=== PATIENT | female | born 1955 | race Caucasian/White ===

== ENCOUNTER 2019-10-03 14:43 | Outpatient (CLI) | payer OTHER, SELFPAY ==
--- NOTE | ~2019-10-03 | MM_ITS ---
EXAMINATION: MM screening [facility] BI w sanju HISTORY: Screening mammogram TECHNIQUE: Craniocaudal and mediolateral oblique 3-D tomosynthesis images were obtained and synthetic 2-D images were generated. CAD analysis was submitted and interpreted. COMPARISON: 09/05/2018, 08/23/2017, 08/21/2016 BREAST PARENCHYMAL COMPOSITION: There are scattered areas of fibroglandular density. FINDINGS: There is no evidence of suspicious mass, calcification, or architectural distortion to sugg est malignancy in either breast. There has been no suspicious interval change. IMPRESSION: 1. No mammographic evidence of malignancy. 2. Recommend routine screening mammography in one year. BI-RADS Category 1: Negative Reviewed, dictated and finalized at location A.
== END 2019-10-03 14:44 | disposition home or self-care (01) ==
LOC: ANHIMG 14:47
PROVIDERS: PCP Nurse Practitioner Obstetrics & Gynecology; Visit Provider Nurse Practitioner Obstetrics & Gynecology
DX: Z12.31 Encounter for screening mammogram for malignant neoplasm of breast (principal)
CPT/HCPCS: 77063; 77067

== ENCOUNTER → 2020-12-24 11:01 | Outpatient (CLI) | payer MEDICARE, SELFPAY ==
--- NOTE | ~2020-12-24 | DEXA_ITS ---
Bone Density Report Name: Carole Bailey Age: 65 Sex: Female Ethnicity: White Date of : 1955 Indication: osteopenia; height loss; postmenopausal Referring Provider: Marshall Sanchez Study: Bone densitometry was performed. Exam Date: December 24, 2020 Accession number: [id number] Bone Density: Region BMD T-score Z-score Classification AP Spine (L1-L4) 0.768 -2.5 -0.7 Osteoporosis Femoral Neck (Left) 0.676 -1.6 0.0 Osteopenia Total Hip (Left) 0.794 -1.2 0.0 Osteopenia Femoral Neck (Right) 0.620 -2.1 -0.5 Osteopenia Total Hip (Right) 0.746 -1.6 -0.4 Osteopenia Total Hip Mean 0.770 -1.4 -0.2 Osteopenia World Health Organization criteria for BMD impression classify patients as: Normal (T-score at or above -1.0), Osteopenia (T-score between -1.0 and -2.5), or Osteoporosis (T-score at or below -2.5). 10-year Fracture Risk: FRAX not reported because: Some T-score for Spine Total or Hip Total or Femoral Neck at or below -2.5 Previous Exams: Region Exam Age BMD T-score BMD Change BMD Change Date g/cm2 vs Baseline vs Previous AP Spine(L1-L4) 12/24/2020 65 0.768 -2.5 -0.167* -0.027* 09/05/2018 63 0.795 -2.3 -0.140* -0.040* 08/21/2016 61 0.836 -1.9 -0.099* 0.005 08/01/2014 58 0.831 -2.0 -0.104* -0.013 01/06/2012 56 0.844 -1.8 -0.091* -0.091* 07/10/2009 53 0.935 -1.0 Total Hip(Left) 12/24/2020 65 0.794 -1.2 -0.107* -0.006 09/05/2018 63 0.800 -1.2 -0.101* -0.023 08/21/2016 61 0.822 -1.0 -0.078* -0.016 08/01/2014 58 0.838 -0.9 -0.063* -0.006 01/06/2012 56 0.844 -0.8 -0.057* -0.057* 07/10/2009 53 0.900 -0.3 Total Hip(Right) 12/24/2020 65 0.746 -1.6 -0.085* -0.022 09/05/2018 63 0.768 -1.4 -0.063* -0.015 08/21/2016 61 0.783 -1.3 -0.048* -0.017 08/01/2014 58 0.800 -1.2 -0.031* 0.014 01/06/2012 56 0.786 -1.3 -0.045* -0.045* 07/10/2009 53 0.831 -0.9 *Denotes significance at 95% confidence level, LSC for AP Spine = 0.022 g/cm2, LSC for Total Hip = 0.027 g/cm2 Clinical Information Provided by Patient: Has used the following medications: Calcium Patient maximum height was 65.5 Menopause Age: 54 No regular weight bearing exercise Drinks caffeinated beverages Onset of menses at age 13 Number of
--- NOTE | ~2020-12-24 | MM_ITS ---
EXAMINATION: MM screening [facility] [place] BI w sanju HISTORY: Screening mammogram TECHNIQUE: Craniocaudal and mediolateral oblique 3-D tomosynthesis images were obtained and synthetic 2-D images were generated. CAD analysis was submitted and interpreted. COMPARISON: 10/03/2019, 09/05/2018, 08/23/2017 BREAST PARENCHYMAL COMPOSITION: There are scattered areas of fibroglandular density. FINDINGS: There is no evidence of suspicious mass, calcification, or architectural distortion to sugg est malignancy in either breast. There has been no suspicious interval change. IMPRESSION: 1. No mammographic evidence of malignancy. 2. Recommend routine screening mammography in one year. BI-RADS Category 1: Negative Reviewed, dictated and finalized at location A.
== END ==
PROVIDERS: PCP Internal Medicine; Visit Provider Obstetrics & Gynecology
DX: Z12.31 Encounter for screening mammogram for malignant neoplasm of breast (principal); M81.0 Age-related osteoporosis without current pathological fracture; M85.851 Other specified disorders of bone density and structure, right thigh; M85.852 Other specified disorders of bone density and structure, left thigh
CPT/HCPCS: 77063; 77067; 77080

== ENCOUNTER → 2022-02-05 11:13 | Outpatient (CLI) | payer MEDICARE, SELFPAY ==
--- NOTE | ~2022-02-05 | MM_ITS ---
EXAMINATION: MM screening [facility] w sanju HISTORY: Screening TECHNIQUE: Craniocaudal and mediolateral oblique 3-D tomosynthesis images were obtained and synthetic 2-D images were generated. CAD analysis was submitted and interpreted. COMPARISON: No prior mammogram is available for comparison at this institution. BREAST PARENCHYMAL COMPOSITION: There are scattered areas of fibroglandular density. FINDINGS: There is no evidence of suspicious mass, calcification, or architectural distortion to sugg est malignancy in either breast. There has been no suspicious interval change. IMPRESSION: 1. No mammographic evidence of malignancy. 2. Recommend routine screening mammography in one year. BI-RADS Category 1: Negative Reviewed, dictated and finalized at location A. 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
== END ==
PROVIDERS: PCP Internal Medicine; Visit Provider Nurse Practitioner Obstetrics & Gynecology
DX: Z12.31 Encounter for screening mammogram for malignant neoplasm of breast (principal)
CPT/HCPCS: 77063; 77067

== ENCOUNTER 2023-01-19 01:36 | Day surgery (SDC) | payer MEDICARE, SELFPAY ==
[2023-01-06 14:03] VITALS: BMI 25.8
[2023-01-19 07:08] VITALS: BP 142/67; PULSE 78; RESP 16; TEMP 35.8; O2SAT 99; BMI 25.5
[2023-01-19] MEDS: LACTATED RINGERS 1,000 ML 150 ML IV CONT (07:34)
--- NOTE | 2023-01-19 07:56 | P.PNAN_ITS ---
Anes - Initial Pre Proc Eval Procedure: Operation Date: 01/19/23 08:30 Proposed Procedures p Screening Colonoscopy - Gerardo Arroyo MD Date/Time: 01/19/23 07:56 Surgeon: Gerardo Arroyo MD Pre Op Diagnosis: neoplasm screening Patient Data Age: 67 Gender: F Height: 1.65 m Weight: 69.7 kg Last Vital Signs Temp 96.4 F L 01/19/23 07:08 Pulse 78 01/19/23 07:08 Resp 16 01/19/23 07:08 BP 142/67 H 01/19/23 07:08 Pulse Ox 99 01/19/23 07:08 O2 Del Method Room Air 01/19/23 07:08 Allergies Allergy/AdvReac Type Severity Reaction Status Date / Time No Known Drug Allergies Allergy Unknown Unknown Verified 01/19/23 07:14 Home Medications Medication Instructions Recorded Confirmed Type estradiol 4 mcg vaginal insert 4 mcg vaginal 2XW 11/12/20 01/19/23 History (Imvexxy Maintenance Pack) levothyroxine 25 mcg tablet 25 mcg PO DAILY #90 tabs 12/16/22 01/19/23 Rx alendronate 70 mg tablet 70 mg PO WEEKLY 01/06/23 01/19/23 History Patient hx anesthesia problems: none Family hx anesthesia problems: none Results Review: All pre-operative results and documents have been reviewed as part of the pre-operative evaluation. [facility] Past Medical History Medical History Age related osteoporosis Family History Family History Mother , November 2020 Diabetes mellitus Thyroid disorder Heart disease Sibling Thyroid disorder Grandparent Diabetes mellitus Social History Social History (Updated 12/16/22 @ 13:15 by Amber Palmer [facility]) Social History: Caffeine-coffee 2 cups daily Smoking packs per day: 0.5 Smoking cigarettes per day: 10.0 Years smoked: 25 Smoking pack-years: 12.50 Smoking status: Former smoker Tobacco type: cigarettes Smoking end date: 02/20/00 Alcohol intake: current Drinks per week: 2 Alcohol use details: wine and margaritas Substance use: never Substance use type: does not use Lack of Transportation: No Lack of Food: Never True Current Housing: I Have Housing Concerned About Future Housing: No Difficulty Paying Gas/Electric Bills: No Difficulty Paying for Meds: No Currently Unemployed: No Education: High School Diploma/GED Difficulty w/ Childcare or Family Care: No Living arrangements: with family Spiritual care concerns: No Anes - Eval Final PreProcedure Day of Procedure 01/19/23 07:56 Patient weight: normal Heart: regular rate and rhythm Lungs: clear to auscultation Airway: Mallampati scale class II Neurological: alert and oriented Last oral intake: >/= 8 hours ASA classification: II Emergent: no Anesthetic plan: proceed Anesthesia type and monitoring: general GIVS and standard monitoring Results Review: All pre-operative results and documents have been reviewed as part of the pre- operative evaluation. Informed Consent: The patient's anesthetic plan and its attendant risks and benefits were discussed with the patient/family/POA. Questions were solicited and answers provided to the satisfaction of the patient/family/POA.
--- NOTE | 2023-01-19 07:57 | P.HP_ITS ---
History of Present Illness History of Present Illness Consent: Risks, benefits, and alternatives have been discussed and questions answered. Patient agrees to proceed with procedure. Chief complaint: neoplasm screening Narrative: Carole Bailey is a 67 year old female Presents for screening colonoscopy. Patient's current weight appetite and bowel movements are normal. Patient denies abdominal pain. She has had no bleeding. Family history noncontributory . Previous colonoscopy 12 years ago was unremarkable. Review of Systems Review of Systems: Review of systems noncontributory. [facility] Past Medical History Medical History (Reviewed 04/28/21 @ 13:34 by Jossie Chandra [facility]) Age related osteoporosis Family History Family History (Reviewed 12/16/22 @ 13:03 by Amber Palmer [facility]) Mother , November 2020 Diabetes mellitus Thyroid disorder Heart disease Sibling Thyroid disorder Grandparent Diabetes mellitus Social History Social History (Updated 12/16/22 @ 13:15 by Amber Palmer [facility]) Social History: Caffeine-coffee 2 cups daily Smoking packs per day: 0.5 Smoking cigarettes per day: 10.0 Years smoked: 25 Smoking pack-years: 12.50 Smoking status: Former smoker Tobacco type: cigarettes Smoking end date: 02/20/00 Alcohol intake: current Drinks per week: 2 Alcohol use details: wine and margaritas Substance use: never Substance use type: does not use Lack of Transportation: No Lack of Food: Never True Current Housing: I Have Housing Concerned About Future Housing: No Difficulty Paying Gas/Electric Bills: No Difficulty Paying for Meds: No Currently Unemployed: No Education: High School Diploma/GED Difficulty w/ Childcare or Family Care: No Living arrangements: with family Spiritual care concerns: No Meds Home Medications and Allergies Home Medications Medication Instructions Recorded Confirmed Type estradiol 4 mcg vaginal insert 4 mcg vaginal 2XW 11/12/20 01/19/23 History (Imvexxy Maintenance Pack) levothyroxine 25 mcg tablet 25 mcg PO DAILY #90 tabs 12/16/22 01/19/23 Rx alendronate 70 mg tablet 70 mg PO WEEKLY 01/06/23 01/19/23 History Allergies Allergy/AdvReac Type Severity Reaction Status Date / Time No Known Drug Allergies Allergy Unknown Unknown Verified 01/19/23 07:14 Vital Signs Vital Signs - 24 hr 01/19/23 07:08 Temperature 96.4 F L Pulse Rate 78 Respiratory Rate 16 Blood Pressure 142/67 H Pulse Oximetry 99 Oxygen Delivery Room Air Exam Narrative: Physical exam reveals patient to be alert. Vital signs stable. HEENT exam is unremarkable. Patient is anicteric. Lungs are clear to auscultation and percussion. Heart is without murmur or extra sounds. Abdomen bowel sounds are present soft nontender with no organomegaly. Digital external rectal exam is normal. Assessment and Plan Assessment and plan (1) Screening for colon cancer: Code(s): Z12.11 - Encounter for screening for malignant neoplasm of colon Status: Acute Assessment and Plan: Patient presents today for screening colonoscopy. She appears to be at average risk for colon polyps. Further recommendations may be giv
[2023-01-19 08:29] VITALS: BP 96/53; PULSE 73; RESP 16; O2SAT 97
[2023-01-19 08:39] VITALS: BP 105/50; PULSE 74; RESP 20; O2SAT 100
[2023-01-19 08:49] VITALS: BP 104/64; PULSE 68; RESP 16; O2SAT 100
== END 2023-01-19 08:56 | disposition home or self-care (01) ==
PROVIDERS: PCP Internal Medicine; Visit Provider Internal Medicine Gastroenterology
PROC: 0DJD8ZZ Inspection of Lower Intestinal Tract, Via Natural or Artificial Opening Endoscopic (ICD-10-PCS; CPT 45378; principal; 2023-01-19 08:30)
DX: Z12.11 Encounter for screening for malignant neoplasm of colon (principal); K64.8 Other hemorrhoids; M81.0 Age-related osteoporosis without current pathological fracture; Z87.891 Personal history of nicotine dependence
CPT/HCPCS: G0121; J2704; J7120

== ENCOUNTER → 2023-04-16 10:53 | Outpatient (CLI) | payer MEDICARE, SELFPAY ==
--- NOTE | ~2023-04-16 | DEXA_ITS ---
Bone Density Report Name: AGUSTIN TIJERINA Age: 67 Sex: Female Ethnicity: White Date of : 1955 Indication: postmenopausal osteoporosis; monitoring treatment; Referring Provider: Anshul, Lauren Orozco Study: Bone densitometry was performed. Exam Date: April 16, 2023 Accession number: [id number] Bone Density: Region BMD T-score Z-score Classification AP Spine (L1-L4) 0.804 -2.2 -0.3 Osteopenia Femoral Neck (Left) 0.708 -1.3 0.4 Osteopenia Total Hip (Left) 0.822 -1.0 0.4 Normal Femoral Neck (Right) 0.686 -1.5 0.2 Osteopenia Total Hip (Right) 0.804 -1.1 0.2 Osteopenia Total Hip Mean 0.813 -1.1 0.3 Osteopenia World Health Organization criteria for BMD impression classify patients as: Normal (T-score at or above -1.0), Osteopenia (T-score between -1.0 and -2.5), or Osteoporosis (T-score at or below -2.5). 10-year Fracture Risk: FRAX not reported because: Treated for osteoporosis Previous Exams: Region Exam Age BMD T-score BMD Change BMD Change Date g/cm2 vs Baseline vs Previous AP Spine(L1-L4) 04/16/2023 67 0.804 -2.2 -0.131* 0.036* 12/24/2020 65 0.768 -2.5 -0.167* -0.027* 09/05/2018 63 0.795 -2.3 -0.140* -0.040* 08/21/2016 61 0.836 -1.9 -0.099* 0.005 08/01/2014 58 0.831 -2.0 -0.104* -0.013 01/06/2012 56 0.844 -1.8 -0.091* -0.091* 07/10/2009 53 0.935 -1.0 Total Hip(Left) 04/16/2023 67 0.822 -1.0 -0.078* 0.029* 12/24/2020 65 0.794 -1.2 -0.107* -0.006 09/05/2018 63 0.800 -1.2 -0.101* -0.023 08/21/2016 61 0.822 -1.0 -0.078* -0.016 08/01/2014 58 0.838 -0.9 -0.063* -0.006 01/06/2012 56 0.844 -0.8 -0.057* -0.057* 07/10/2009 53 0.900 -0.3 Total Hip(Right) 04/16/2023 67 0.804 -1.1 -0.027 0.058* 12/24/2020 65 0.746 -1.6 -0.085* -0.022 09/05/2018 63 0.768 -1.4 -0.063* -0.015 08/21/2016 61 0.783 -1.3 -0.048* -0.017 08/01/2014 58 0.800 -1.2 -0.031* 0.014 01/06/2012 56 0.786 -1.3 -0.045* -0.045* 07/10/2009 53 0.831 -0.9 *Denotes significance at 95% confidence level, LSC for AP Spine = 0.022 g/cm2, LSC for Total Hip = 0.027 g/cm2 Clinical Information Provided by Patient: Is being treated for osteoporosis Has use
--- NOTE | ~2023-04-16 | MM_ITS ---
EXAMINATION: MM screening [facility] BI w sanju HISTORY: Screening mammogram TECHNIQUE: Craniocaudal and mediolateral oblique 3-D tomosynthesis images were obtained and synthetic 2-D images were generated. CAD analysis was submitted and interpreted. COMPARISON: 02/05/2022, 12/24/2020, 10/03/2019 BREAST PARENCHYMAL COMPOSITION: The breasts are almost entirely fatty. FINDINGS: No suspicious mass, calcification, or architectural distortion are identified in either sid ast to suggest malignancy. There has been no suspicious interval change. IMPRESSION: 1. No mammographic evidence of malignancy. 2. Recommend routine screening mammography in one year. BI-RADS Category 1: Negative Reviewed, dictated and finalized at location A. 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
== END ==
PROVIDERS: PCP Internal Medicine; Visit Provider Nurse Practitioner Obstetrics & Gynecology
DX: Z12.31 Encounter for screening mammogram for malignant neoplasm of breast (principal); M85.89 Other specified disorders of bone density and structure, multiple sites
CPT/HCPCS: 77063; 77067; 77080

== ENCOUNTER 2024-05-16 13:20 | Outpatient (CLI) | payer MEDICARE, SELFPAY ==
--- NOTE | ~2024-05-16 | MM_ITS ---
EXAMINATION: MM screening [facility] BI w sanju HISTORY: Screening mammogram TECHNIQUE: Craniocaudal and mediolateral oblique 3-D tomosynthesis images were obtained and synthetic 2-D images were generated. CAD analysis was submitted and interpreted. COMPARISON: 04/16/2023, 02/05/2022, 12/24/2020 BREAST PARENCHYMAL COMPOSITION:Not Dense. There are scattered areas of fibroglandular density. FINDINGS: No suspicious mass, calcification, or architectural distortion are identified in either sid ast to suggest malignancy. There has been no suspicious interval change. IMPRESSION: No mammographic evidence of malignancy. Recommend routine screening mammography in one year. BI-RADS Category 1: Negative Reviewed, dictated and finalized at location . 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
== END 2024-05-16 13:21 | disposition home or self-care (01) ==
LOC: MICIMG 13:21
PROVIDERS: PCP Internal Medicine; Visit Provider Nurse Practitioner
DX: Z12.31 Encounter for screening mammogram for malignant neoplasm of breast (principal)
CPT/HCPCS: 77063; 77067

== ENCOUNTER 2025-01-17 00:43 | Day surgery (SDC) | payer MEDICARE, SELFPAY ==
[2025-01-09 13:09] VITALS: BMI 25.9
--- NOTE | 2025-01-09 13:16 | PC.NURSE ---
[facility] has started construction of its new state of the art ER which will open Spring 2026. With this, we anticipate parking may be a challenge for some our surgical patients and families. Parking spaces are limited but are available for all Surgical, obstetrics, and ER patients sharing this lot. If you arrive and find you are having a hard time finding a parking space, please note that we understand the challenges, please drive around the hospital and park near Hospital Entrance 1. When you enter this entrance, you can ask a volunteer to direct or take you back to the surgical waiting area to check in. We appreciate everyone?s understanding of these expected challenges while we build for your future. Report to the Outpatient Waiting Room, entrance under the green pavilion located off [address], at time __08:00am on date ___01/17/25____. Planned Procedure Time: __10:00am .? Time changes happen often and if your time is changed the preop area will call you the afternoon before. - You and your visitor will be asked to self-screen and do not enter if you have any COVID symptoms. Please call surgeon if you need to reschedule. - A mask is optional within the hospital at this time. Patients may have clear liquids (water, carbonated beverages, clear teas, apple juice) until 3 hours prior to surgery with a maximum of 20 ounces. - No food from midnight until time of surgery and no smoking, or chewing tobacco (or any form of nicotine). No chewing gum, candy or mints.( 0700am) Take only the following medications with a SIP of water on the morning of surgery: _ Levothyroxine DO NOT STOP ANY OF YOUR OTHER PRESCRIPTION MEDICATIONS PRIOR TO SURGERY EXCEPT THE FOLLOWING Hold all vitamins and supplements for 3 days per anesthesiologist. Medications to discontinue per physician NONE Date to take last dose NONE Please no make-up, nail kinyarwanda, hairspray, perfume, deodorant, or body powder the day of surgery.? No jewelry (including any body piercings) or valuables the day of surgery, leave them at home.? Please take a shower or bath the night before, or the morning of, surgery with an antibacterial soap.? Wear comfortable, loose fitting clothing.? - Jewelry must be removed prior to entering the operating room.? Rings and piercings that are not removed may be cut off. - The hospital will not accept responsibility for valuables.? - Please leave all valuables, including medications, at home the day of surgery. If you are going home after surgery, a licensed delivery route driver must drive you home.? - NO public transportation without another adult if you receive anesthesia. - We recommend that an adult stay with you for 24 hours following discharge. - We also recommend that you do not drive, make important decision, drink alcoholic beverages, or take any drugs that were not prescribed by your health care provider for at least 24 hours after your discharge time. Follow any additional instructions given to you from your surgeon. Telephone instructions given to __Patient and asked if any additional questions and then verbalized understanding. Patient advised to call surgeon office or pre surgery nurse liaison [phone] if any additional questions.
--- OUTSIDE RECORDS SUMMARY | 2025-01-17 00:46 | XMS_ITS | Data Portability ---
Author Organization [facility] Address [address] [place] [address] Care Team Providers Care Rural Service Engineer Name Role Phone CHEVY GOLDMAN Primary Care Provider Assessment Encounter Date Assessment Date Assessment LastModified by Organization Details LastModified Time 11/01/2024 11/01/2024 Annual gynecological exam performed. Patient will come back in a year unless there are new symptoms. [email or web address] Not available 11/01/2024 11:58:28 Plan of Treatment Reminders Order Date Submit Date Provider Last Modified By Organization Details Last Modified Time Details Appointments SURG Hysterosc opy 2024 10:00A Kassidy SANCHEZ MD Not available Not available Not available SURG POST OP 2024 10:45A Kassidy SANCHEZ MD Not available Not available Not available Lab None recorded. Referral None recorded. Procedures None recorded. Surgeries hysterosc opy, surgical, with biopsy of endometri um and/or polypecto my (SURG) 2024 025 [facility], [address], [place], [address], 12/11/2024 18:32:05 Imaging US, pelvis 2024 025 [email or web address] [facility], [place], [address], 11/09/2024 23:26:41 US, transvagi nal 2024 025 [email or web address] [facility], [place], [address], 11/09/2024 23:26:41 MAMMO, screening , digital, bilateral 2024 025 [facility], [address], [place], [address], 11/01/2024 14:09:34 Medication Orders Imvexxy Starter Pack 4 mcg vaginal insert, dose pack 2024 025 [id number], [address], [place], [address], 11/01/2024 14:05:24 Patient TargetsNo targets recorded. Patient InstructionsNo instructions recorded. Reason for Referral None Reported. Results Created Date Observation Date Name Description Value Unit Range Abnormal Flag Note LastModifiedBy Organization Detail LastModifiedTime 11/02/1911/01/2024 IMAGE GUIDE D PAP AND HPV REGAR DLESS image guided Pap, HPV regardless of Pap result SEE RESULT S BELOW CASE REPOR T: Cytol ogy Gynec ologi ariel Repor t Case: [id number] Autho maggie maloney Provi arden: Selma Casarez, MUNDO Colle cted: 11/01 1416 Order ing Locat ion: [place] [facility] Recei juan pablo: 11/02 0542 First Scree n: Irene Araya Specdemetri men: Scretor hadley Pap - Image d, Cervi x STATE MENT OF ADEQU ACY: Satis facto ry for evalu ation Trans forma tion zone compo nent prese nt ----- ----- ----- ----- ----- ----- ----- ----- ----- ----- ----- ----- ----- ----- ----- ----- ----- ---- FINAL DIAGN OSIS: Negat efra for Intra epith alfred tom or Austin dunbar (NIL) . Atrop hy prese nt Elect gilberto herr simona d by Irene Araya on 2024 at 1254 CDT ----- ----- ----- ----- ----- ----- ----- ----- ----- ----- ----- ----- ----- ----- ----- ----- ----- ---- HPV RESUL TS: HPV mRNA E6/E7 : No HPV mRNA Detec luis felipe NOTE: This high risk HPV mRNA assay detec ts fourt een high- risk HPV types (16, 18, 31, 33, 35, 39, 45, 51, 52, 56, 58, 59, 66, 68) witho ut diffe renti ation . COMME NT: This speci men was revie wed by a Cytot echno logis t and/o r Patho logis t (as indic ated in this repor t) after evalu ation using the Thinp rep Imagi ng Syste m. CLINI ARIEL INFOR MATIO N: Menst rual Statu s: LMP (if appli cable ): Clini ariel Histo ry/Pr eviou s Pap: Type of Neopl rocco (if appli cable ): Signi fican t Clini ariel Findi ngs: Other Histo ry: Hormo haroldo (if appli cable ): PAP EDUCA TAISHA L NOTE: The Pap Test is a scree leonie test with an inher ent false negat efra rate. Liqui d-bas ed sampl ing may decre ase, but will not elimi meghan, false negat efra resul ts. A negat efra resul t does not precl ude the prese nce and/o r devel opmen t of disea se, since the prese nce of abnor mal cells in the sampl e depen ds on the locat ion of the lesio n and sampl ing techn ique. Keysha nued regul ar scree leonie is the best metho d of cance r preve ntion . If repor luis felipe cytol ogic findi ng do not corre late with physi ariel and/o r histo rical findi ngs, furth er inves tigat ion is recom robert d, as clini robin torres nted. Not Available [facility] (Lab) [address], [place], [address], 11/08/2024 14:16:49 11/02/19 25 11/01/2024 CULTU RE: HSV/ VZV hsv culture/type Commen t abnormal Posit efra for Herpe s simpl ex virus type- 2. Typin g was confi rmed by monoc lonal antib agustín micro scopi c immun ofluo resce nce. Not Available [facility] (Lab) [address], [place], [address], 11/08/2024 14:16:50 11/02/19 25 11/01/2024 CULTU RE: HSV/ VZV viral culture, rapid,varice lla Commen t Herpe s simpl ex virus was isola luis felipe and confi rmed by fluor escen t antib agustín stain ing. The isola tion of Varic philly- Zoste r virus from this cultu re is not possi ble due to the growt h of Herpe s simpl ex virus . This does not rule out the possi bilit y of Varic philly- Zoste r virus infec tion. Not Available [facility] (Lab) [address], [place], [address], 11/08/2024 14:16:50 04/16/19 24 04/16/2023 MAMMO , scree leonie, bilat eral No observ ation record ed. [email or web address] [facility] [address], [place], [address], 04/22/2023 11:20:08 04/17/19 24 04/16/2023 DEXA, axial skele ton + verte bral fract ure asses sment No observ ation record ed. [email or web address] [facility] [address], [place], [address], 04/22/2023 11:20:08 11/10/19 25 11/09/2024 US, pelvi s No observ ation record ed. [email or web address] [facility] [address], [place], [address], 11/09/2024 17:46:35 11/10/19 25 11/09/2024 US, trans vagin al No observ ation record ed. [email or web address] [facility] [address], [place], [address], 11/09/2024 17:46:45 11/10/19 25 11/09/2024 US, pelvi s No observ ation record ed. [email or web address] [facility] [address], [place], [address], 12/06/2024 15:43:51 Result Notes None recorded. Problems Name Problem SNOMED Code Status Onset Date Resolution Date Notes Provider Name and Address Organization Details Recorded Time Screenin g for malignan t neoplasm of colon Completed 201009/02/2020 Special screening for malignant neoplasms , colon;Pra ctice ID: 0001 [facility] 10:44:24 Screenin g for malignan t neoplasm of cervix Completed 201109/02/2020 Screening for malignant neoplasms of the cervix;Re corded Elsewhere : No Locati on: [facility] So urce: EHR Chron ic: N Practic e ID: 0001 Bill able Time: 08:30:00 AM [facility] 10:44:22 Adult health examinat ion Completed 201109/02/2020 Routine Medical Exam;Shahriar rded Elsewhere : No Locati on: [facility] So urce: EHR Chron ic: N Practic e ID: 0001 Bill able Time: 08:30:00 AM [facility] 10:43:59 [facility] [id number] Completed 201109/02/2020 Dyspareun ia;Record ed Elsewhere : No Locati on: [facility] So urce: EHR Chron ic: N Practic e ID: 0001 Bill able Time: 08:30:00 AM Monique Steel [facility] 10:44:10 Disorder of bone and articula r cartilag e [id number] Completed 201109/02/2020 Disorder of bone and cartilage , unspecifi ed;Record ed Elsewhere : No Locati on: [facility] So urce: EHR Chron ic: N Practic e ID: 0001 Bill able Time: 08:45:00 AM [facility] 10:44:07 Speciali yenny medical examinat ion Completed 201409/02/2020 Gynecolog ical Examinati on;Record ed Elsewhere : No Locati on: [facility] So urce: EHR Chron ic: N Practic e ID: 0001 Bill able Time: 08:45:00 AM Monique Steel [facility] 10:44:32 Screenin g for malignan t neoplasm of rectum Completed 201509/02/2020 Encounter for screening for malignant neoplasm of rectum;Re corded Elsewhere : No Locati on: [facility] So urce: EHR Chron ic: N Practic e ID: 0001 Bill able Time: 09:00:00 AM [facility] 10:44:[address] Concept Completed 201509/02/2020 Encntr for general adult medical exam w/o abnormal findings; Recorded Elsewhere : No Locati on: [facility] So urce: EHR Chron ic: N Practic e ID: 0001 Bill able Time: 09:00:00 AM Monique Steel [facility] 10:44:29 Non-scar ring alopecia [id number] Completed 201509/02/2020 Other specified nonscarri ng hair loss;Shahriar rded Elsewhere : No Locati on: [facility] So urce: EHR Chron ic: N Practic e ID: 0001 Bill able Time: 09:00:00 AM Monique mccracken [facility] 10:44:17 Menopaus e present [id number] Completed 201609/02/2020 Symptoms such as flushing, sleepless ness, headache, lack of concentra tion, associate d with natural (age-rela luis feliep) menopause ;Recorded Elsewhere : No Locati on: [facility] So urce: EHR Chron ic: N Practic e ID: 0001 Bill able Time: 08:30:00 AM [facility] 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 10:44:31 Disorder of bone [id number] Completed 201609/02/2020 Disorder of bone;Shahriar rded Elsewhere : No Locati on: [facility] So urce: EHR Chron ic: N Practic e ID: 0001 Bill able Time: 08:30:00 AM Monique Steel [facility] 10:44:06 Atrophic vaginiti s [id number] Completed 201609/02/2020 Postmenop ausal atrophic vaginitis ;Recorded Elsewhere : No Locati on: [facility] So urce: EHR Chron ic: N Practic e ID: 0001 Bill able Time: 08:30:00 AM [facility] 10:44:01 Deep pain on intercou rse [id number] Completed 201809/02/2020 Deep dyspareun ia;Record ed Elsewhere : No Locati on: [facility] So urce: EHR Chron ic: N Practic e ID: 0001 Bill able Time: 10:30:00 AM Monique Steel [facility] 10:44:04 Disorder of uterus 33629593 Completed 201809/02/2020 Disorder of uterus;Re corded Elsewhere : No Locati on: [facility] So urce: EHR Chron ic: N Practic e ID: 0001 Bill able Time: 10:30:00 AM Monique Steel [facility] 10:44:09 Sexual function painful Completed 201809/02/2020 Dyspareun ia;Record ed Elsewhere : No Locati on: [facility] So urce: EHR Chron ic: N Practic e ID: 0001 Bill able Time: 03:00:00 PM Monique Steel [facility] 10:44:27 Polyp of corpus uteri [id number] Completed 201809/02/2020 Polyp of corpus uteri;Rec orded Elsewhere : No Locati on: [facility] Source: EHR Chron ic: N Practic e ID: 0001 Bill able Time: 12:00:00 AM Monique Steel [facility] 10:44:19 Blood leukocyt e number above referenc e range [id number] Completed 201809/02/2020 Elevated white blood cell count, unspecifi ed;Record ed Elsewhere : No Locati on: [facility] So urce: EHR Chron ic: N Practic e ID: 0001 Bill able Time: 03:00:00 PM Monique Steel [facility] 10:44:13 Bone density finding [id number] Completed 201809/02/2020 osteopeni a;Recorde d Elsewhere : No Locati on: [facility] So urce: EHR Chron ic: N Practic e ID: 0001 Bill able Time: 11:30:00 AM [facility] 10:44:02 Hypothyr oidism [id number] Completed 201809/02/2020 Hypothyro idism, unspecifi ed;Record ed Elsewhere : No Locati on: [facility] So urce: EHR Chron ic: N Practic e ID: 0001 Bill able Time: 11:30:00 AM Monique mccracken [facility] 10:44:12 Problem Notes None recorded. Procedures Surgical History Date Name Laterality Status Provider Name and Address Organization Details Recorded Time 11/02/19 25 Date of Last Pap Smear completed [facility] 12/11/2024 14:17:16 05/16/19 25 Date of Last Mammogram completed Sandhya Dwyer [facility] 11/01/2024 12:01:44 12/25/19 21 Most Recent Bone Density completed Jessy [facility] 09/11/2022 13:29:03 09/13/19 19 completed [facility] 09/02/2020 10:47:25 03/22/19 11 completed [facility] 09/02/2020 10:51:56 03/22/19 11 Colonoscopy completed [facility] 09/02/2020 10:55:46 03/22/18 90 Laparoscopy completed [facility] 09/02/2020 10:55:42 Hysteroscopy completed Kathy Retana [facility] 08/16/2019 11:10:35 Imaging Results None recorded. Procedure Notes None recorded. Medical Equipment None Reported. Allergies No known drug allergies Medications Name Sig Start Date Stop Date Status Note LastModified by Organization Details LastModified Time Prometriu m 200 mg capsule take 1 capsule (200MG) by oral route every day for 30 days in the evening soham herr per 28 day cycle 07/21 completed Prescrib ed Elsewher e: No Locat ion: [facility] odify By: vivien Mathews nter DateTime : 06/23/19 14 08:30:00 AM Not Available Not Available Not Available Evista 60 mg tablet TAKE 1 TABLET DAILY 07/27 completed Prescrib ed Elsewher e: No Locat ion: [facility] odify By: vivien Mathews nter DateTime : 07/21/19 17 08:31:41 AM Not Available Not Available Not Available fluconazo le 150 mg tablet TAKE 1 TABLET BY MOUTH EVERY DAY WITH DINNER FOR 1 DAY 12/02 completed Not Available Not Available Not Available valacyclo vir 1 gram tablet Take 1 tablet every day by oral route for 5 days. 11/20 completed Not Available Not Available Not Available Lotrisone 1 %-0.05 % topical cream apply by topical route 2 times every day for 2 weeks to the affected and surround ing areas of skin in the morning and evening 07/22 completed Prescrib ed Elsewher e: No [facility] By: vivien Mathews nter DateTime : 07/10/19 16 09:00:00 AM Not Available Not Available Not Available alendrona te 70 mg tablet TAKE 1 TABLET WEEKLY (MONDAYS ) active Not Available Not Available No t Available levothyro xine 25 mcg tablet TAKE 1 TABLET DAILY active Not Available Not Available No t Available triamcino lone acetonide 0.1 % topical ointment APPLY A THIN LAYER TO THE AFFECTED AREA(S) BY TOPICAL ROUTE 2 TIMES PER DAY NEEDED active Not Available Not Available No t Available zinc 50 mg tablet active Prescrib ed Elsewher e: Yes Loca tion: [facility] odify By: jerson Lentz ncounter DateTime : 08/11/19 18 09:30:00 AM Not Available Not Available Not Available estradiol 0.01% (0.1 mg/gram) vaginal cream INSERT 1 G TWICE A WEEK BY VAGINAL ROUTE. 09/03 completed Not Available Not Available Not Available Vitamin D2 1,250 mcg (50,000 unit) capsule take 1 capsule by oral route every week 06/08 completed Prescrib ed Elsewher e: No [facility] By: merry egan DateTime : 07/12/19 10:11:37 AM Not Available Not Available Not Available calcium-m agnesium 300 mg-300 mg tablet active Prescrib ed Elsewher e: Yes [facility]oca [facility] By: giovanna Benavides ter DateTime : 08/12/19 03:00:00 PM Not Available Not Available Not Available multivita min capsule take 1 capsule by oral route every day active Prescrib ed Elsewher e: Yes Loca tion: Tony lentz [facility] odify By: anuja sinha DateTime : 06/28/19 08:45:00 AM Not Available Not Available Not Available Premarin 0.625 mg/gram vaginal cream insert 0.5 applicat orful by vaginal route 2-3 x a week 08/11 completed Prescrib ed Elsewher e: No [facility]at [facility] By: giovanna Benavides ter DateTime : 06/11/19 08:02:40 AM Not Available Not Available Not Available levothyro xine 09/02 completed Not Available Not Available Not Available zinc 08/15 completed Not Available Not Available Not Available Calcium/M agnesium Formula 09/02 completed Not Available Not Available Not Available Differin 0.3 % topical gel apply by topical route every day to the affected area(s) after washing in the evening 10/03 completed Prescrib ed Elsewher e: Yes Loca tion: Tony lentz [facility] odify By: tripp sams DateTime : 08/11/19 18 09:30:00 AM Not Available Not Available Not Available Vagifem 10 mcg vaginal tablet INSERT ONE TABLET VAGINALL Y TWICE WEEKLY 06/27 completed Prescrib ed Elsewher e: No Locat ion: Tony lentz [facility] odify By: vivien Mathews nter DateTime : 02/22/20 14 03:45:58 PM Not Available Not Available Not Available sodium,po tassium,m ag sulfates 17.5 gram-3.13 gram-1.6 gram oral soln TAKE DIRECTED active Not Available Not Available No t Available Zyclara 3.75 % topical cream in a pump apply 1 pump by topical route every day as a thin layer to the affected area(s) before bedtime ; rub in until complete ly absorbed , leave in place for 8 hours, and then wash off with mild soap and water 10/03 completed Prescrib ed Elsewher e: Yes Loca tion: [facility] odify By: amshannon Lentz ncounter DateTime : 08/11/19 18 09:30:00 AM Not Available Not Available Not Available Multi Vitamin 09/02 completed Not Available Not Available Not Available Duavee 0.45 mg-20 mg tablet TAKE 1 TABLET BY ORAL ROUTE EVERY DAY 10/03 completed Prescrib ed Elsewher e: No Locat ion: [facility] odify By: tripp Lentz ncounter DateTime : 08/11/19 18 09:30:00 AM Not Available Not Available Not Available Imvexxy Starter Pack 4 mcg vaginal insert, dose pack INSERT (4 MCG) TWICE WEEKLY FOR DURATION OF USE active Not Available Not Available No t Available Imvexxy Maintenan ce Pack 4 mcg vaginal insert Insert 1 vaginal insert twice a week by vaginal route. 09/11 completed Not Available Not Available Not Available Flowflex COVID-19 Antigen Home Test kit DIRECTED 09/11 completed Not Available Not Available Not Available Vitals Date Recorded Body height Body mass index (BMI) Body weight Systolic And Diastolic Provider Name and Address Organization Details Last Updated DateTime 11/01/2024 162.56 cm 26.6 kg/m2 94861.82 g 112/70 mm[Hg] Sandhya Dwyer [facility] 11/01/2024 11:59:09 Date Recorded Body height Body mass index (BMI) Body weight Systolic And Diastolic Provider Name and Address Organization Details Last Updated DateTime 11/17/2023 162.56 cm 27.5 kg/m2 83605.78 g 113/73 mm[Hg] Ximena Galan [facility] 11/17/2023 14:16:33 Date Recorded Systolic And Diastolic Provider Name and Address Organization Details Last Updated DateTime 12/02/2022 122/74 mm[Hg] Lauren Landers, [facility]- [address], [place], [address], [facility] 12/02/2022 09:54:03 Date Recorded Body height Body mass index (BMI) Body weight Provider Name and Address Organization Details Last Updated DateTime 12/02/2022 162.56 cm 26.8 kg/m2 32104.41 g Jessy [facility] 12/02/2022 09:43:48 Date Recorded Body height Body mass index (BMI) Body weight Systolic And Diastolic Provider Name and Address Organization Details Last Updated DateTime 12/11/2024 162.56 cm 26.8 kg/m2 22114.41 g 125/74 mm[Hg] [facility] 12/11/2024 14:16:35 Social History Question Answer Notes LastModified by Organizat ion Details LastModified Time Tobacco Smoking Status Never Smoker Not Available [facility] 01/23/2020 03:28:11 Are You Blind Or Do You Have Difficulty Seeing? No Information n ot available 09/02/2020 What Is Your Level Of Caffeine Consumption? Occasional Information not available 09/02/2020 In The 14 Days Before Symptom Onset, Have You Had Close Contact With A Laboratory-confirm ed COVID-19 While That Case Was Ill? No Information n ot available 09/11/2022 In The 14 Days Before Symptom Onset, Have You Had Close Contact With A Person Who Is Under Investigation For COVID-19 While That Person Was Ill? No Information not available 09/11/2022 Have You Been To An Area Known To Be High Risk For COVID-19? No Information not available 09/11/2022 Are You Deaf Or Do You Have Serious Difficulty Hearing? No Information not available 09/02/2020 What Type Of Diet Are You Following? REGULAR Information n ot available 09/02/2020 Do You Use Your Seat Belt Or Car Seat Routinely? Yes Information not available 09/02/2020 Do You Have Smoke And Carbon Monoxide Detectors In Your Home? Yes Information not available 09/02/2020 Do You Use Sunscreen Routinely? Yes Information not available 09/02/2020 Sex: Unknown Functional Status Question Answer Note LastModified by Organizat ion Details LastModified Time Do you use any illicit or recreational drugs? No Information not available 09/02/2020 What is your level of alcohol consumption? Occasional Information not available 09/02/2020 Are you able to walk independently without assistance or assistive devices? YESWOREST Information not available 09/02/2020 What is your exercise level? Occasional Information not available 09/02/2020 Mental Status Question Answer Note LastModified by Organization D etails LastModified Time Do you feel stressed (tense, restless, nervous, or anxious, or unable to sleep at night)? [id number] Information not available 09/02/2020 Family History Relationship Description Onset Age of this Age Resolved Age Notes LastModified by Organization Details LastModified Time Paternal Grandmother Myocardial infarction [email or web address] Not available 08/15 11:10:14 Maternal Grandfather Alzheimer's disease Not available 2024 13:46:46 Medical History Condition Response Allergies (Food, seasonal, environmental ) N Other N Drug/Latex Allergies/Reactions N Blood Transfusion N Breast Cancer N Dermatologic Disorders N Lung Disease N Defects or Inherited Disease N Breast Problem N Gestational Diabetes N Hematologic disorders N Anesthesia Complications N History of STI N Deep Vein Thrombosis N Polycystic ovary syndrome N Anxiety Disorder N Autoimmune disease N Arthritis N Polyps N Infertility N Acid Reflux (GERD) N History of abnormal pap N Cancer N Varicosities N Stroke N Neurologic/Epilepsy N Endometriosis Y High Cholesterol N Fibromyalgia N Headaches N Kidney Disease N Heart Problems N Thyroid Problems N Kidney or Bladder Problems N GI Problems N Eating Disorder N Anemia N Art (IVF or FET) N Psychiatric Illness N Ovarian Cancer N Diabetes N Pulmonary (TB, Asthma) N Hepatitis/Liver Disease N No Past Medical History N Eczema N Urinary Tract Infection N Abuse/Domestic Violence N Asthma N Trauma/Violence N Depression/ depression N Heart Disease N Pre-Eclampsia N Hypertension N Osteoporosis Y Thrombophilias N Gynecological History Statement/Question Response Abnormal Pap N Date of Last Mammogram 05/16/2024 STIs/STDs N HPV Vaccine N 09/12/2018 Current Control Method Menopause If Post Menopausal, Age at Menopause [age] Date of Last Colonoscopy Most Recent Bone Density 12/24/2020 Sexually Active? Y Menses Monthly N Date of Last Pap Smear 11/01/2024 LMP Unknown 03/22/2010 Obstetrics History GPAL:G 1 P 0 0 1 0 Type Value Spontaneous 1 Living 0 Total 1 Immunizations Vaccine Type Date Status Note Provider Nam e and Address Organization Details Recorded Time COVID-19, mRNA, LNP-S, PF, 30 mcg/0.3 mL dose 1 completed Jessy mccracken, [facility] 12/02/2022 09:44:03 Pneumococcal conjugate PCV 13 1 completed Jessy mccracken, [facility] 12/02/2022 09:44:03 COVID-19, mRNA, LNP-S, PF, 30 mcg/0.3 mL dose, long-sucrose 2 completed Jessy mccracken, [facility] 12/02/2022 09:44:03 Past Encounters Encounter ID Performer Location Encounter Start Date Encounter Closed Date Diagnosis/Indication Diagnosis SNOMED-CT Code Diagnosis ICD10 Code Diagnosis IMO Codes Diagnosis Note [id number] [address] [address] 08/16/2019 11:50:45 08/16/2019 13:50:38 Gynecologic examination [id number] N90.5 Take Calcium with Vitamin D 12-1500mg daily. Do monthly self breast exams. It is advised to get annual flu shot in the fall and she could obtain at [facility] or [facility] clinic. If you haven't received the Tdap vaccine in the last 10 years you should obtain one as well. Have mammogram yearly, bone density every 2-3 years and colonoscop y every 5-10 years depending on findings and history. Engage in daily exercise of low impact aerobic exercise 45-60 minutes 4-5 times weekly. Avoid tobacco and illicit drugs as well as using moderation with alcohol intake less than 1-2 8 oz beverages daily. This lifestyle behavior pattern will lead to less health conditions and longer life span. If BMI greater than 25 weight watchers or dietary consult advised. Questions have been answered. Patient appears to understand instructio ns, but if you have any further questions call or respond to this email Pap/HPV deferred STD declined RF Estrace vaginal CBE done Mammo ordered UTD Colonoscop y & DExa pcp Wants health labs. Adult heal th examination [id number] Z00.00 [id number] Lauren Landers , [facility] [address] [address] 09/03/2020 10:35:59 09/03/2020 13:17:59 Gynecologic examination [id number] N90.5 Take Calcium with Vitamin D 12-1500mg daily. Do monthly self breast exams. It is advised to get annual flu shot in the fall and she could obtain at [facility] or [facility] care clinic. If you haven't received the Tdap vaccine in the last 10 years you should obtain one as well. Have mammogram yearly, bone density every 2-3 years and colonoscop y every 5-10 years depending on findings and history. Engage in daily exercise of low impact aerobic exercise 45-60 minutes 4-5 times weekly. Avoid tobacco and illicit drugs as well as using moderation with alcohol intake less than 1-2 8 oz beverages daily. This lifestyle behavior pattern will lead to less health conditions and longer life span. If BMI greater than 25 weight watchers or dietary consult advised. Questions have been answered. Patient appears to understand instructio ns, but if you have any further questions call or respond to this email Pap/HPV completed If wnl can consider d/c pap per asccp unless otherwise indicated. STD declined CBE done Mammo ordered UTD Colonoscop y & DExa pcp Wants health labs. Vaginal dryness [id number] N89.8 Will check for coveragen by sending Rx. Enough samples given Imvexxy 4mcg x 14days then will need to do 1 insert twice weekly & f/u x 3mos. RTO x 3mos for med check Adult heal th examination [id number] Z00.00 Will make appt Postmenopa usal osteopenia [id number] M85.80 Hypothyroidism 04802297 E03.9 Referred to PCP who can further manage this medication . [id number] Lauren Landers [facility] [address] [address] 11/26/2021 11:48:22 11/26/2021 12:12:09 Dyspareunia 00259373 N94.10 N95.2 Here today for yearly medication check of Iimvexxy.W orking well & achieving all goals with this medication .Wishes to continue.E destin is wnlAhansropjulisa iate to continue this medication . Time spent in visit is a total of 15 mins with at least 50% of visit consisting of counseling and review of plan of care. Screening mammography 24 761856 Z12.31 [id number] Lauren Landers [facility] [address],[facility] [place] [address] 09/11/2022 13:13:23 09/14/2022 16:11:38 Gynecologic examination 77059540 Z01.419 Z11.51 Take Calcium with Vitamin D 12-1500mg daily. Do monthly self breast exams. It is advised to get annual flu shot in the fall and she could obtain at [facility] or [facility] care clinic. If you haven't received the Tdap vaccine in the last 10 years you should obtain one as well. Have mammogram yearly, bone density every 2-3 years and colonoscop y every 5-10 years depending on findings and history. Engage in daily exercise of low impact aerobic exercise 45-60 minutes 4-5 times weekly. Avoid tobacco and illicit drugs as well as using moderation with alcohol intake less than 1-2 8 oz beverages daily. This lifestyle behavior pattern will lead to less health conditions and longer life span. If BMI greater than 25 weight watchers or dietary consult advised. Questions have been answered. Patient appears to understand instructio ns, but if you have any further questions call or respond to this email Pap/hpv USPSTF recommends against screening for cervical cancer in women older than 65yo, those who've had a hysterecto my for non-cancer indication s, & who have had adequate prior screening & are not otherwise at high risk for cervical cancer. STD Screen declinedGe netic Screen discussedC olon Screen UTD PCPDexa Screen orderedRou sharon Labs UTD PCP Screening mammography 24 540060 Z12.31 Postmenopa usal osteopenia 634066255 M85.80 Dyspareunia 31372830 N94 .10 N95.2 Here today for yearly medication check of Iimvexxy.W orking well & achieving all goals with this medication .Wishes to continue.E destin is wnlAppropr iate to continue this medication . Vaginitis 99323222 N76.0 Yeast found on examLikely due to spending time in hot weather & sweating in tight clothing. [id number] MARY Oquendo[facility] [address] [address] 12/02/2022 09:26:24 12/02/2022 10:04:35 Vaginal discharge 685439139 N89.8 Today we discussed abnormal d/c vs asymptomat ic d/c.Provid ed reassuranc e that d/c is wnlUnderst anding verbalized Time spent in visit is a total of 15 mins with at least 50% of visit consisting of counseling and review of plan of care. [id number] HA BRYSON MD [facility] [address] [address] 11/17/2023 13:40:22 11/17/2023 14:44:27 Vaginal dryness 21455773 N89.8 - patient reports postmenopa usal vaginal dryness, previously on vaginal estrogen cream with worsening irritation - has now been on Imvexxy 4mcg with good results; improved dryness, no dyspareuni a- discussed r/b of vaginal estrogen including low risk of breast cancer- plan for cessation if she is no longer sexually active- no contraindi cations to continue- refills sent [id number] MARY Colunga [facility] [address] [address] 11/01/2024 11:41:12 11/01/2024 14:09:34 Gynecologic examination 54989660 Z01.263 [id number] WWEpostmen opausalPap - done todaySTI screen - declinedMa mmogram - orderedCol on cancer screening - UTDDexa - UTD/PCPRou sharon labs - UTD/PCPRTC in 1 yr or sooner if needed Do monthly self breast exams.It is advised to get annual flu shot in the fall and she could obtain at local pharmacy. If you haven't received the Tdap vaccine in the last 10 years you should obtain one as well.Have mammogram yearly, bone density every 2-3 years and stay up to date on colon cancer screening. Engage in regular exercise. Avoid tobacco and illicit drugs. This lifestyle behavior pattern will lead to less health conditions and longer life span. If BMI greater than 25 dietary consult advised.Qu estions have been answered. Screening mammography 24 632275 Z12.31 [id number] Postmenopa usal bleeding 77400930 N95.0 61014 Dyspareunia 17446982 N94 .10 doing well with imvexxy use, refills sentveg based moisturize r routine discussed, use as lubricant with ICsuspect vaginal atrophy source of spotting with IC, rec updated pelvic u/s for further evaluation - ordered Vulval irritation 452162 003 N90.89 0891606 HSV PCR sent of area of irritation vulvar care guidelines discussedc ontinue imvexxyveg based moisturize r [id number] Jeffry Sanchez MD [facility] [address] [address] 11/09/2024 13:39:05 11/09/2024 14:28:02 Postcoital bleeding 77188458 N93.0 830389 [id number] Jeffry Sanchez MD [facility] [address] [address] 12/11/2024 13:46:03 12/12/2024 14:10:39 Lesion of cervix 236703557 N88.9 [id number] This patient is a 69-year-ol d female who presents for endometria l/ endocervic al lesion. She has some thickness and vascularit y to the endocervic al area. We discussed these findings. We discussed the potential for malignancy . We agreed to evaluate. We will perform hysterosco py D&C with evaluation of the endocervix . The procedure was explained to the patient in detail. She understand s the procedure. She understand s the risks, benefits, and alternativ es. She has completed the informed consent process and is ready to proceed. Health Concerns Section Related Observation LastModified by Organization Detai ls LastModified Time None Recorded Concern Status LastModified by Organization Details LastModified Time None Recorded Advance Directives Directive None Recorded Payers Insurance Date Sequence Insurance Name Policy Number Policy Royal Covered Member ID Royal Member ID Guarantor Name 09/03/2020 1 [employer] (POS II) [id number] Sunday Sethikvng [id number] Carole Ku Lynn 11/26/2021 1 [employer] (MEDICARE REPLACEMENT/ ADVANTAGE - PPO) [id number] Carole Ku Lynn [id number] Carole Kings Riceker 01/14/2025 1 [employer] (MEDICARE REPLACEMENT/ ADVANTAGE - PPO) [id number] Carole Bailey [id number] Carole Bailey Notes Date Note Type Note Provider Name and Address Organization Details Recorded Time 3 text/html Vaginal/Vulvar ProblemReported by PatientHere today for concerns of increase in vaginal d/c with other sx'sShe is using the imvexxy vag supps twice weekly.Feels this therapy is helping a lot with dryness/previous atrophic vaginitis.Increase in d/c is daily.Thin, opaque, no odor.Wants to make sure this is normal. Neg pain of abd/pelvis/flankNeg urinary sx'sNeg GI sx'sNeg N/V/F/C/DNeg odor, irritation, itchingROS as noted in the HPI MARY Oquendo- [address], [place], [address], [facility] 12/02/2022 09:58:09 4 text/html Patient presents for med check of Imvexxy. She reports that the medication makes intercourse much more comfortable. She denies any side effects. No vaginal bleeding or irritation. No abnormal discharge. HA BRYSON MD [address], [place], [address], [facility] 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 For vaginal bleeding, patient reportshistory of menopause having occurredandno history of post menopausal bleeding. For urinary symptoms, patient reportsno hematuria,no incontinence,no nocturia, andno urinary frequency. For vulva, patient reportsno genital lesionandno vulvar atrophy. For vagina, patient reportsnormal vaginal dischargeandno vaginal atrophy.Breast symptomsFor breast, patient reportsno breast lump,no nipple discharge, andno breast pain.Psychological symptomsFor sexual complaints, patient reportsno sexual complaints. For psychological symptoms, patient reportsno depressionandno anxiety.Preventative measuresFor preventive measures, patient reportsencourage regular mammograms starting age 40,encourage self breast examination,encourage regular exercise, andencourage no tobacco use.69yo wwepostmenopausallast pap 2020 wnlmammogram last 5colonoscopy UTDdexa UTD/PCP, on alendronate managed by PCP uses imvexxy which has helped with dryness/pain with IChas noticed some vaginal spotting with IC over the past few months Sandhya mccracken, [facility] 11/01/2024 15:07:42 5 text/html This patient is a 69-year-old female who presents for endometrial/ endocervical lesion. She has some thickness and vascularity to the endocervical area. We discussed these findings. We discussed the potential for malignancy. We agreed to evaluate. We will perform hysteroscopy D&C with evaluation of the endocervix. The procedure was explained to the patient in detail. She understands the procedure. She understands the risks, benefits, and alternatives. She has completed the informed consent process and is ready to proceed. Jeffry Sanchez MD [address], [place], [address], [facility] 12/12/2024 13:38:30 OBGyn Episode Ob Episode Information Episode Created Date Number of Fetuses Patient Bloodtype Patient rh Status Prepregnancy Weight lbs Domestic Partner Domestic Partner Phone Father Name Enroller Status 09/03/19 21 1 CLOSED Fetus Data First Name Last Name Admitted to NICU Weight (g) Sex Living Outcome Pediatric Complications Fetus ID Race Codes Race Delivery Type , Spontane ous [id number] Dennis Calculation Initial Dennis Date Initial Exam Date Initial Exam Provider Initial Ultrasound Date Last Menstrual Period Date Ultra Sound Weeks Gestation 0 Eighteen To Twenty Week Dennis Update Ultra Sound Date Fundal Height At Umbil Quickening Date Ultra Sound Latest Weeks Gestation Final Dennis Confirmed By Final Dennis Confirmed Date Final Dennis Date Ultra Sound Latest Days Gestation 0 0 Menstrual History Last Menstrual Date Menses Monthly On Bcp Conception Prior Menses Frequency Hcg Plus Date Menarche Onset Age Delivery Information Delivery Date Delivery Type Labor Anesthesia Weeks Gestation Incision Type Labor Labor Length Hrs Delivered By Post Complications Tubal Sterilization Discharge Date Comments 1 Discharge Information Feeding Method Contraceptive Method Maternal HG B and HCT Levels
--- NOTE | 2025-01-17 07:22 | PM.IMHP ---
H&P: HPI History of Present Illness Date/Time: 01/17/25 07:22 Chief Complaint: Endocervical lesion Narrative: This patient is a 69-year-old female who presents for endometrial/ endocervical lesion. She has some thickness and vascularity to the endocervical area. We discussed these findings. We discussed the potential for malignancy. We agreed to evaluate. We will perform hysteroscopy D&C with evaluation of the endocervix. The patient understands the details of the procedure. The procedure has been explained in detail. She understands the risks. She understands that injuries may occur that result in hospitalization, more surgery, and severe illness. She understands risk of hemorrhage and infection. She denies any chest pain or shortness of breath. She denies any nausea, vomiting, fever, chills. Review of Systems Review of Systems: All systems reviewed & are unremarkable except as noted in HPI and below Constitutional: Constitutional: Denies chills, Denies fatigue, Denies fever(s) and Denies weakness Eyes: Eyes: Denies blurry vision, Denies change in vision, Denies loss of peripheral vision, Denies loss of vision, Denies other visual disturbances and Denies eye pain ENT: Denies vertigo, Denies dizziness, Denies hearing loss, Denies mouth pain, Denies nasal obstruction, Denies neck mass and Denies neck pain Cardiovascular: Cardiovascular: Denies chest pain, Denies diaphoresis, Denies syncope, Denies leg edema and Denies dyspnea Respiratory: Respiratory: Denies chest congestion, Denies cough, Denies hemoptysis, Denies dyspnea and Denies wheezing Gastrointestinal: Gastrointestinal: Denies abdominal pain, Denies constipation, Denies diarrhea, Denies nausea and Denies vomiting Genitourinary: Genitourinary: Denies hematuria, Denies change in libido, Denies nocturia, Denies genital lesions, Denies flank pain and Denies urinary urgency Musculoskeletal: Musculoskeletal: Denies abnormal gait, Denies back pain, Denies myalgias, Denies arthralgias, Denies joint swelling, Denies muscle weakness and Denies neck pain Integumentary/Breasts: Skin/Breast: Denies swelling, Denies breast pain, Denies breast mass, Denies dry skin, Denies nipple discharge, Denies unusual bruising and Denies jaundice Neurologic: Denies Neuro-related abnormal movements, Denies Abnormal speech present, Denies abnormal gait, Denies behavioral changes, Denies confusion, Denies vertigo, Denies dizziness, Denies syncope, Denies loss of vision, Denies memory loss, Denies convulsions and Denies weakness Psychiatric: Psychiatric: Denies abnormal sleep pattern, Denies behavioral changes, Denies change in libido, Denies confusion, Denies depression, Denies anhedonia and Denies memory loss Endocrine: Endocrine: Reports no additional endocrine complaints, Denies change in libido and Denies fatigue Hematologic/Lymphatic: Hematologic/Lymphatic: Reports no additional hematologic/lymphatic complaints Allergic/Immunologic: Allergic/Immunologic: Reports no additional allergic/immunologic complaints and Denies wheezing PMFSH Past Medical History Medical History Age related osteoporosis Family History Family History Mother , November 2020 Diabetes mellitus Thyroid disorder Heart disease Sibling Thyroid disorder Grandparent Diabetes mellitus Social History Social History Social History: Caffeine-coffee 2 cups daily Smoking packs per day: 0.5 Smoking cigarettes per day: 10.0 Years smoked: 25 Smoking pack-years: 12.50 Smoking status: Former smoker Tobacco type: cigarettes Smoking end date: 02/20/00 Alcohol intake: current Drinks per week: 2 Alcohol use details: wine and margaritas Substance use: never Substance use type: does not use Lack of Transportation: No Lack of Food: Never True Current Housing: I Have Housing Concerned About Future Housing: No Difficulty Paying Gas/Electric Bills: No Difficulty Paying for Meds: No Currently Unemployed: No Education: High School Diploma/GED Difficulty w/ Childcare or Family Care: No Living arrangements: with family Spiritual care concerns: No Meds Home Medications and Allergies Home Medications ?Medication ?Instructions ?Recorded ?Confirmed ?Type estradiol 4 mcg vaginal insert 4 mcg vaginal 2XW 11/12/20 01/09/25 History (Imvexxy Maintenance Pack) alendronate 70 mg tablet 70 mg PO WEEKLY #12 tabs 12/19/24 01/09/25 Rx levothyroxine 25 mcg tablet 25 mcg PO DAILY #90 tabs 12/19/24 01/09/25 Rx Allergies Allergy/AdvReac Type Severity Reaction Status Date / Time No Known Drug Allergies Allergy Unknown Unknown Verified 01/09/25 13:06 Exam Const: General: cooperative, healthy appearing, comfortable and no acute distress Orientation/consciousness: oriented to person, oriented to place and oriented to time HENMT: Head: normal to inspection Ears: external ears normal Face/Nose/Sinus: Normal external nose present and normal facial exam Face and sinus: normal facial exam Eyes: General: appearance normal, both eyes and all related structures Neck: Neck: normal visual inspection, trachea midline and supple Resp: Auscultation: clear to auscultation bilaterally, no crackles, no rales, no rhonchi and no wheezes Cardio: Rate: regular rate Rhythm: regular rhythm Heart sounds: no click, no murmurs and no rubs GI: GI Palp: No abdominal tenderness, No Soft to palpation, No Tenderness to palpation present (GI) and No Palpable mass present Auscultation: normal bowel sounds Skin: General skin exam: normal color and no rashes or lesions noted Neuro: General: oriented to person, oriented to place and oriented to time Extrem: General: normal to inspection, no joint enlargement, no clubbing, cyanosis or edema, no pedal edema and no calf tenderness Psych: Appearance: grossly normal Mental Status: mental status grossly normal Speech and movement: Normal speech and movement present Assessment and Plan Assessment and plan (1) Lesion of cervix: Code(s): N88.9 - Noninflammatory disorder of cervix uteri, unspecified Status: Acute Plan This patient is a 69-year-old female who presents for endometrial/ endocervical lesion. She has some thickness and vascularity to the endocervical area. We discussed these findings. We discussed the potential for malignancy. We agreed to evaluate. We will perform hysteroscopy D&C with evaluation of the endocervix. The procedure was explained to the patient in detail. She understands the procedure. She understands the risks, benefits, and alternatives. She has completed the informed consent process and is ready to proceed.
--- NOTE | 2025-01-17 07:24 | WPDHPUPDATE1 ---
History and Physical Update Update Date/Time: 01/17/25 07:24 History and Physical has been reviewed, including an updated exam of the patient. There are NO changes in the patient's condition. Risks, benefits, and alternatives have been discussed and questions answered. Patient agrees to proceed with procedure.
[2025-01-17] MEDS: ACETAMINOPHEN 500 MG TABLET 1000 MG PO (08:15)
--- NOTE | 2025-01-17 08:43 | WPDANESEPPF ---
Anes - Initial Pre Proc Eval Procedure: Operation Date: 01/17/25 10:00 Proposed Procedures p Hysteroscopy with Biopsy of Endometrium and/or Polypectomy - Jeffry Sanchez MD Date/Time: 01/17/25 08:43 Surgeon: Jeffry Sanchez MD Pre Op Diagnosis: Lesion of Cervix Patient Data Age: 69 Gender: F Height: 1.65 m Weight: 70.9 kg Allergies Allergy/AdvReac Type Severity Reaction Status Date / Time No Known Drug Allergies Allergy Unknown Unknown Verified 01/09/25 13:06 Home Medications ?Medication ?Instructions ?Recorded ?Confirmed ?Type estradiol 4 mcg vaginal insert 4 mcg vaginal 2XW 11/12/20 01/09/25 History (Imvexxy Maintenance Pack) alendronate 70 mg tablet 70 mg PO WEEKLY #12 tabs 12/19/24 01/09/25 Rx levothyroxine 25 mcg tablet 25 mcg PO DAILY #90 tabs 12/19/24 01/09/25 Rx Patient hx anesthesia problems: none Family hx anesthesia problems: none Results Review: All pre-operative results and documents have been reviewed as part of the pre-operative evaluation. [facility] Past Medical History Medical History Age related osteoporosis Family History Family History Mother , November 2020 Diabetes mellitus Thyroid disorder Heart disease Sibling Thyroid disorder Grandparent Diabetes mellitus Social History Social History Social History: Caffeine-coffee 2 cups daily Smoking packs per day: 0.5 Smoking cigarettes per day: 10.0 Years smoked: 25 Smoking pack-years: 12.50 Smoking status: Former smoker Tobacco type: cigarettes Smoking end date: 02/20/00 Alcohol intake: current Drinks per week: 2 Alcohol use details: wine and margaritas Substance use: never Substance use type: does not use Lack of Transportation: No Lack of Food: Never True Current Housing: I Have Housing Concerned About Future Housing: No Difficulty Paying Gas/Electric Bills: No Difficulty Paying for Meds: No Currently Unemployed: No Education: High School Diploma/GED Difficulty w/ Childcare or Family Care: No Living arrangements: with family Spiritual care concerns: No Anes - Eval Final PreProcedure Day of Procedure 01/17/25 08:43 Patient weight: overweight Heart: regular rate and rhythm Lungs: clear to auscultation Airway: Mallampati scale class II Neurological: alert and oriented Last oral intake: >/= 8 hours ASA classification: II Emergent: no Anesthetic plan: proceed Anesthesia type and monitoring: general GIVS and standard monitoring Results Review: All pre-operative results and documents have been reviewed as part of the pre-operative evaluation. Informed Consent: The patient's anesthetic plan and its attendant risks and benefits were discussed with the patient/family/POA. Questions were solicited and answers provided to the satisfaction of the patient/family/POA.
[2025-01-17 08:50] VITALS: BMI 25.8
[2025-01-17 08:52] VITALS: BP 126/60; PULSE 69; RESP 18; TEMP 36.8; O2SAT 99
--- NOTE | 2025-01-17 10:03 | S_PTH ---
PATIENT: Carole Bailey LOC: [facility] U#:[id number] AGE/SX: 69/F ROOM: RE01/17/[address]: Jeffry Sanchez MD : 1955 BED: DIS: 01/17/2025 SPEC #: [id number] RECD: 01/17/25 11:24 STATUS: [place] REQ #: [id number] BHARGAV: 01/17/25 10:[address]: Jeffry Sanchez DEPT: [facility] Surgical RECD BY: Deborah Ratliff ENTERED: 01/17/25 11:25 SP TYPE: Surgical OTHR DR: Haile Suazo DO Tissues: A - Endometrial Curettings Procedures: Hematoxylin and Eosin Stain Gross and Microscopic Level 4
[2025-01-17] MEDS: KETOROLAC 15 MG/ML VIAL (*BKC) IV PUSH (10:05)
[2025-01-17 10:11] VITALS: BP 152/70; PULSE 65; RESP 14; O2SAT 98
[2025-01-17] MEDS: LACTATED RINGERS 1,000 ML 30 ML IV CONT (10:11)
--- NOTE | 2025-01-17 10:29 | P.OP_ITS ---
Procedure Note - Detailed Date of Procedure 01/17/25 Pre-op Diagnosis Lesion of Cervix Post-op Diagnosis Same Procedure Performed Hysteroscopy D&C Surgeon Jeffry Sanchez MD Anesthesia MAC Indications abnormal uterine bleeding Description of Procedure the patient was taken the operating room. She was prepped and draped in the dorsal lithotomy position after induction of mac anesthesia. A speculum was placed in the vagina. The cervix was grasped with a tenaculum. The cervix was dilated about 1 cm. The hysteroscope was inserted. The intrauterine cavity and endocervix were evaluated. Hysteroscope was withdrawn. A medium-size curette was used to curettage all the surfaces were within the endometrial cavity. the sample was collected on Telfa and sent to pathology. The hysteroscope was reinserted and the above findings were noted. Patient t olerated the procedure well. The speculum and tenaculum were removed. She was taken recovery room in stable condition. Sponge lap and needle counts were correct x2. Estimated Blood Loss 40 Drains No Packing No Pathology Yes Complications No immediate complications Condition Stable Disposition PACU
[2025-01-17 10:40] VITALS: BP 129/64; PULSE 50
[2025-01-17 11:10] VITALS: BP 124/64; PULSE 60; RESP 16
[2025-01-17] MEDS: oxyCODONE HCL (*CRX) 5 MG TAB IR PO (11:17)
[2025-01-17 11:40] VITALS: BP 120/64; PULSE 56; RESP 16
== END 2025-01-17 11:49 | disposition home or self-care (01) ==
PROVIDERS: PCP Internal Medicine; Visit Provider Obstetrics & Gynecology
PROC: 0U5B8ZZ Destruction of Endometrium, Via Natural or Artificial Opening Endoscopic (ICD-10-PCS; CPT 58563; principal; 2025-01-17 10:00)
DX: N88.9 Noninflammatory disorder of cervix uteri, unspecified (principal); Z87.891 Personal history of nicotine dependence
CPT/HCPCS: 58558; 88305; A9270; J1885; J2003; J2250; J2405; J2704; J3010; J7120